=== PATIENT | female | born 1930 | race Caucasian/White ===

== ENCOUNTER 2016-05-11 18:49 | Observation (INO) | payer MEDICARE ==
[~2016-05-11] VITALS: Ht 152.4 cm; Wt 54.2 kg
[~2016-05-11 18:49] MED LIST: ASPI81TA28 PO; ATOR-24 PO; BISO10TA14 PO; MECL25TA2 PO; PLN/10 PO; WARF2.5T8 PO
[2016-05-11] MEDS ORDERED: SODIUM CHLORIDE 0.9% 1000ML 1,000 ML IV SCH (19:18)
[2016-05-11 19:32] LABS: BASO % 0.7 %; BASO ABS # 0.07 K/uL (0-0.2); COMPLETE YES; HEMATOCRIT 46.5 % (37-47); IG% 0.3 %; LYMPH % 26.7 %; LYMPH ABS # 2.66 K/uL (1.2-3.4); MEAN CELL VOLUME 93.6 fL (80-100); MEAN CORPUSCULAR HEMOGLOBIN 32.4 pg (25-34); MEAN CORPUSCULAR HGB CONC 34.6 g/dl (32-36); MEAN PLATELET VOLUME 13.9 fL (7.4-10.4); MONO % 7.1 %; NEUT % 62.2 %; PLATELET COUNT 201 K/uL (130-400); RED BLOOD COUNT 4.97 M/uL (4.2-5.4); WHITE BLOOD COUNT 9.96 K/uL (4.8-10.8)
--- NOTE | 2016-05-11 19:39 | DIAGNOSTIC IMAGING REPORT ---
HEAD CT NONCONTRAST CT DOSE: 614.27 mGy.cm HISTORY: Stroke symptoms. TECHNIQUE: Multiaxial CT images of the head were performed without the use of intravenous contrast. Automated exposure control was utilized for this study. Comparison: None. Findings: Small fluid level within the sphenoid sinuses. The mastoid air cells are clear. The calvarium and skull base are intact. There is no mass, hematoma, midline shift, acute infarct. White matter hypodensity is nonspecific but suggestive of microvascular ischemic change. The ventricles and sulci demonstrate mild age-related involutional changes. Impression: No acute intracranial abnormality. Small fluid levels within the sphenoid sinuses. Electronically signed by: Dionicio Luz M.D. 05/11/2016 7:38 PM Dictated Date/Time: 05/11/2016 7:34 PM
--- NOTE | 2016-05-11 19:40 | DIAGNOSTIC IMAGING REPORT ---
CHEST ONE VIEW PORTABLE HISTORY: Stroke symptoms. COMPARISON: Chest 12/22/2015. FINDINGS: The lungs are clear. Cardiac silhouette is normal in size. No pleural effusions. No pneumothorax. IMPRESSION: No acute process. Electronically signed by: Dionicio Luz M.D. 05/11/2016 7:39 PM Dictated Date/Time: 05/11/2016 7:38 PM
[2016-05-11 19:42] LABS: PARTIAL THROMBOPLASTIN RATIO 1.3; PROTHROMBIN TIME (PATIENT) 22.1 SECONDS (9.0-12.0)
[2016-05-11 19:51] LABS: BLOOD UREA NITROGEN 21 mg/dl (7-18); BUN/CREATININE RATIO 29.7 (10-20); CALCIUM 9.2 mg/dl (8.5-10.1); CARBON DIOXIDE 27 mmol/L (21-32); CHLORIDE 107 mmol/L (98-107); GLUCOSE 95 mg/dl (70-99); SODIUM 141 mmol/L (136-145)
[2016-05-11 19:55] LABS: CKMB/CK RATIO 4.1 (0-3.0)
[2016-05-11] MEDS ORDERED: ACETAMINOPHEN 325 MG TAB PO PRN (21:45)
[2016-05-11] MEDS ORDERED: PHARMACIST DISCHARGE MED REC CONSULT PRN (21:45)
[2016-05-11] MEDS ORDERED: ONDANSETRON INJ 2 MG/ML 2 ML VIAL IV PRN (21:45)
[2016-05-11] MEDS ORDERED: ALUMINUM/MAGNESIUM/SIMETH (MAALOX MAX) 30 ML UDC PO PRN (21:45)
[2016-05-11 22:39] VITALS: Ht 152.4 cm; Wt 54.2 kg
[2016-05-12] VITALS (8 sets, daily range): BP systolic 104–159; BP diastolic 51–71; PULSE 45–97; TEMP 36.5–36.9; O2SAT 95–97
[2016-05-12] MEDS ORDERED: IV FLUIDS COMPLETED PRN (00:15)
--- NOTE | 2016-05-12 00:23 | History and Physical ---
History & Physical Date & Time of Service: May 12, 2016 at 00:09 Chief Complaint: Stroke-Like Symptoms Primary Care Physician: Vinnie Herrera M.D. History of Present Illness Source: patient, spouse Norma is an 85-year-old female, with history of atrial fibrillation on Coumadin , hypertension, with no previous strokes, who presents with stroke-like symptoms at 5:30 PM, 1.5 hours prior to arrival. She reports she was sitting in her chair reading the newspaper and noticed that her vision became blurry and that words in the newspaper were moving around frequently. She also developed a headache at that time and the lower back part of her head which spread throughout her entire head. She called a friend who is a PA who did an assessment of her over the phone and told her to go to the ED. Upon arriving in the ED she was able to walk from her car to the main entrance but then suddenly felt very weak and had to have a wheelchair bring her into the room. She has been able unable to walk on her own since then. She denies any numbness or tingling in her arms or legs. She denies any facial droop. She denies any slurred speech. A stroke alert was called, though her symptoms had resolved she said they were able to find a change in her right visual field. When speaking with me, she feels her visual weir are intact, and no words move around when she reads small print. She reports she been feeling well otherwise, denies any fevers, chills, night sweats. She denies dehydration. Currently she still reports headache. She is otherwise very active. [place] farm with her and they both take care of each other. Her PCP is Dr. Herrera and her faceter is Dr. Mcknight. Past Medical/Surgical History Medical Problems: (1) Atrial fibrillation Status: Chronic (2) Hyperlipidemia Status: Chronic PSHx: Total hysterectomy and oophorectomy. Family History Hypertension Daughter from ovarian cancer Social History Smoking Status: Never Smoker Drug Use: none Marital Status: Occupational Status: retired Allergies Coded Allergies: Iodinated Contrast Media (Verified Allergy, Unknown, HIVES/ITCHING, ) Home Medications Scheduled Aspirin (Aspirin Ec), 81 MG PO QPM Atorvastatin (Lipitor), 40 MG PO HS Felodipine (Felodipine ER), 10 MG PO QAM Warfarin Sod (Jantoven), 2.5 MG PO QPM Scheduled PRN Meclizine Hcl (Antivert), 25 MG PO TID PRN for Dizziness or Vertigo Review of Systems See HPI for pertinent positives & negatives. A total of 10 systems reviewed and were otherwise negative. Physical Exam Vital Signs Date Time Temp Pulse Resp B/P Pulse Ox O2 Delivery O2 Flow Rate FiO2 05/12/16 00:02 36.5 61 18 154/69 96 Room Air 05/11/16 22:44 80 16 140/78 05/11/16 22:39 Room Air 05/11/16 21:40 74 18 148/78 05/11/16 20:38 77 18 148/81 95 05/11/16 19:50 37.1 89 18 158/67 97 Room Air 05/11/16 19:34 89 05/11/16 19:32 86 18 158/67 97 Room Air 05/11/16 18:56 37.1 47 18 161/73 96 Room Air General Appearance: WD/WN, no apparent distress Head: normocephalic, atraumatic Eyes: normal inspection, PERRL ENT: hearing grossly normal Neck: supple, no adenopathy, no JVD Respiratory/Chest: lungs clear, normal breath sounds, no respiratory distress Cardiovascular: no murmur, normal peripheral pulses, + irregularly irregular Abdomen/GI: normal bowel sounds, non tender, soft Back: no CVA tenderness, no muscle spasm Extremities/Musculoskelatal: no pedal edema Neurologic/Psych: youth minister II-XII nml as tested, no motor/sensory deficits, alert, normal mood/affect, normal reflexes, oriented x 3 Skin: no rash Diagnostics Laboratory Results Results Past 24 Hours Test 05/11/16 19:15 05/11/16 19:18 05/11/16 19:19 Range/Units White Blood Count 9.96 4.8-10.8 K/uL Red Blood Count 4.97 4.2-5.4 M/uL Hemoglobin 16.1 12.0-16.0 g/dL Hematocrit 46.5 37-47 % Mean Corpuscular Volume 93.6 80-100 fL Mean Corpuscular Hemoglobin 32.4 25-34 pg Mean Corpuscular Hemoglobin Concent 34.6 32-36 g/dl Platelet Count 201 130-400 K/uL Mean Platelet Volume 13.9 7.4-10.4 fL Neutrophils (%) (Auto) 62.2 % Lymphocytes (%) (Auto) 26.7 % Monocytes (%) (Auto) 7.1 % Eosinophils (%) (Auto) 3.0 % Basophils (%) (Auto) 0.7 % Neutrophils # (Auto) 6.19 1.4-6.5 K/uL Lymphocytes # (Auto) 2.66 1.2-3.4 K/uL Monocytes # (Auto) 0.71 0.11-0.59 K/uL Eosinophils # (Auto) 0.30 0-0.5 K/uL Basophils # (Auto) 0.07 0-0.2 K/uL RDW Standard Deviation 47.9 36.4-46.3 fL RDW Coefficient of Variation 14.1 11.5-14.5 % Immature Granulocyte % (Auto) 0.3 % Immature Granulocyte # (Auto) 0.03 0.00-0.02 K/uL Prothrombin Time 22.1 9.0-12.0 SECONDS Prothromb Time International Ratio 2.0 0.9-1.1 Activated Partial Thromboplast Time 33.4 21.0-31.0 SECONDS Partial Thromboplastin Ratio 1.3 Sodium Level 141 136-145 mmol/L Potassium Level 4.0 3.5-5.1 mmol/L Chloride Level 107 98-107 mmol/L Carbon Dioxide Level 27 21-32 mmol/L Anion Gap 7.0 3-11 mmol/L Blood Urea Nitrogen 21 7-18 mg/dl Creatinine 0.70 0.60-1.20 mg/dl Est Creatinine Clear Calc Drug Dose 46.0 ml/min Estimated GFR () 91.6 Estimated GFR (Non- 79.0 BUN/Creatinine Ratio 29.7 10-20 Random Glucose 95 70-99 mg/dl Calcium Level 9.2 8.5-10.1 mg/dl Total Creatine Kinase 69 26-192 U/L Creatine Kinase MB 2.8 0.5-3.6 ng/ml Creatine Kinase MB Ratio 4.1 0-3.0 Troponin I < 0.015 0-0.045 ng/ml Bedside Glucose 92 70-90 mg/dl Bedside Prothrombin Time INR 2.1 0.9-1.[address] NONCONTRAST CT DOSE: 614.27 mGy.cm HISTORY: Stroke symptoms. TECHNIQUE: Multiaxial CT images of the head were performed without the use of intravenous contrast. Automated exposure control was utilized for this study. Comparison: None. Findings: Small fluid level within the sphenoid sinuses. The mastoid air cells are clear. The calvarium and skull base are intact. There is no mass, hematoma, midline shift, acute infarct. White matter hypodensity is nonspecific but suggestive of microvascular ischemic change. The ventricles and sulci demonstrate mild age-related involutional changes. Impression: No acute intracranial abnormality. Small fluid levels within the sphenoid sinuses. EKG Atrial fibrillation with frequent PVCs No change from prior EKG Impression Assessment and Plan 85-year-old female with A. fib and hypertension who presents with sudden onset visual changes, now resolved, and weakness - likely TIA. TIA - MRI of brain - Carotid duplex - Continue statin therapy - Continue aspirin 81mg daily (Was on this prior to arrival) Atrial fibrillation - Telemetry - Continue Coumadin 2.5mg daily - Echocardiogram Hypertension - Continue Felodipine Resident Physician Supervision Note: I was present with [Name of resident] during the history and exam. I discussed the case with the resident and agree with the findings and plan as documented in the note. Any exceptions or clarifications are listed here: Pt admitted following acute visual disturbances while reading - on further questioning she more closely describes an acute inability to understand what she was reading in addition to experiencing blurred vision She denied any unilateral weakness or dyphagia Her visual impairment persisted at the time of arrival to the ER and was confirmed by the Telestroke service The pt has chronic AF and is anticoagulated with Coumadin OE AAO x 3 S1,2 R CTAB NT, ND No deficits at the time of admission P: Admit for TIA w/neurochecks ASA added to Coumadin CVA workup Consider ophtho consult Documented By: Sly Conte Level of Care Telemetry Advanced Directives Existing Living Will: Yes Existing Power of News Analyst: Yes Resuscitation Status FULL RESUSCITATION VTE Prophylaxis VTE Risk Assessment Done? Y/N: Yes Risk Level: Moderate Given or contraindicated: Warfarin (Coumadin) Additional Copies To Vinnie Herrera M.D.; Gerald Mcknight MD Resident Tracking Resident Involvement: Resident Care Provided Care Provided: Adult [facility]
--- NOTE | 2016-05-12 01:07 | EMERGENCY ROOM VISIT NOTE ---
History Report prepared by Angeli: Rianna Myles Under the Supervision of: Dr. Shukri Childs M.D. First contact with patient: 19:06 Chief Complaint: STROKE SYMPTOMS Stated Complaint: CLOT IN EYE? VISION DISTORTED History of Present Illness The patient is an 85 year old female who presents to the Emergency Room with complaints of constant stroke-like symptoms for the past 1.5 hours. The patient states that she was feeling fine earlier today. She was not having any difficulty reading. This evening she was paying bills. She did not have any trouble reading the bills or writing checks. At 1730 tonight, immediately after she finished paying the bills, she picked up a newspaper and was attempting to read it. She states that the letters in the words were "crowding up and jumping around in all different directions." Then she developed a headache in the back of her head. She has chronic neck pain, but states that this headache feels different. She rates her pain as a 4/10 in severity. The patient called her friend who is a PA and described her symptoms. She was advised to come to the ED for further evaluation. The patient denies numbness, facial droop, slurred speech, dizziness, trouble swallowing, and any trouble hearing. She denies any difficulty understanding others. She was not feeling weak before she got to the hospital. She was able to walk into the hospital normally, but states that while she was in triage she started to feel generally weak all over. She denies any one-sided weakness. She had difficulty walking back to the room and the nurse called for a wheelchair. The patient states that she is still feeling very unstable when she tries to walk. She denies feeling like the room is spinning. She does not a history of vertigo. She is on Coumadin and states that her most recent INR was WNL. Source of History: patient Onset: 1.5 hours CLAM GROWER Position: other (global) Symptom Intensity: 4/10 Quality: other (stroke-like) Timing: constant Modifying Factors (Worsening): other (walking) Associated Symptoms: + headache, + weakness, No numbness Note: Pt notes difficulty reading. Pt denies facial droop, slurred speech, dizziness, trouble swallowing, and any trouble hearing. Review of Systems See HPI for pertinent positives & negatives. A total of 10 systems reviewed and were otherwise negative. Past Medical & Surgical Medical Problems: (1) Atrial fibrillation (2) Hyperlipidemia (3) Stroke-like symptoms Family History Hypertension Social History Smoking Status: Never Smoker Alcohol Use: none Drug Use: none Marital Status: Housing Status: lives with family Occupation Status: retired Current/Historical Medications Scheduled Aspirin (Aspirin Ec), 81 MG PO QPM Atorvastatin (Lipitor), 40 MG PO HS Felodipine (Felodipine ER), 10 MG PO QAM Warfarin Sod (Jantoven), 2.5 MG PO QPM Scheduled PRN Meclizine Hcl (Antivert), 25 MG PO TID PRN for Dizziness or Vertigo Allergies Coded Allergies: Iodinated Contrast Media (Verified Allergy, Unknown, HIVES/ITCHING, ) Physical Exam Vital Signs Date Time Temp Pulse Resp B/P Pulse Ox O2 Delivery O2 Flow Rate FiO2 05/11/16 21:40 74 18 148/78 05/11/16 20:38 77 18 148/81 95 05/11/16 19:50 37.1 89 18 158/67 97 Room Air 05/11/16 19:34 89 05/11/16 19:32 86 18 158/67 97 Room Air 05/11/16 18:56 37.1 47 18 161/73 96 Room Air Physical Exam Constitutional: Vital signs reviewed. Eyes: Pupils are equal round reactive to light. Conjunctiva are noninjected. Visual field intact by confrontation bilaterally. ENT: Pharynx is clear without erythema or exudate. Mucous membranes are moist. Neck supple without meningeal signs. Respiratory: Clear to auscultation bilaterally. Breath sounds are equal bilaterally. Cardiovascular: Regular rate and rhythm. No rubs or gallops. GI: Soft, nondistended and nontender. Bowel sounds are present. Musculoskeletal: No peripheral edema. No lower extremity tenderness. Integumentary: No cyanosis. Neurological: The patient is awake and alert. Cranial nerves II-XII are intact. Motor is 5 out of 5 all extremities. Sensation is intact to light touch all extremities. Normal speech. Very unsteady gait. No pronator drift. No limb ataxia. Psychiatric: Normal affect. Medical Decision & Procedures ER Provider Diagnostic Interpretation: Radiology results as stated below per my review and the radiologist's interpretation: HEAD CT NONCONTRAST CT DOSE: 614.27 mGy.cm HISTORY: Stroke symptoms. TECHNIQUE: Multiaxial CT images of the head were performed without the use of intravenous contrast. Automated exposure control was utilized for this study. Comparison: None. Findings: Small fluid level within the sphenoid sinuses. The mastoid air cells are clear. The calvarium and skull base are intact. There is no mass, hematoma, midline shift, acute infarct. White matter hypodensity is nonspecific but suggestive of microvascular ischemic change. The ventricles and sulci demonstrate mild age-related involutional changes. Impression: No acute intracranial abnormality. Small fluid levels within the sphenoid sinuses. Electronically signed by: Dionicio Luz M.D. 05/11/2016 7:38 PM Dictated Date/Time: 05/11/2016 7:34 PM CHEST ONE VIEW PORTABLE HISTORY: Stroke symptoms. COMPARISON: Chest 12/22/2015. FINDINGS: The lungs are clear. Cardiac silhouette is normal in size. No pleural effusions. No pneumothorax. IMPRESSION: No acute process. Electronically signed by: Dionicio Luz M.D. 05/11/2016 7:39 PM Dictated Date/Time: 05/11/2016 7:38 PM Laboratory Results 05/11/16 19:15 Red Blood Count 4.97, Mean Corpuscular Volume 93.6, Mean Corpuscular Hemoglobin 32.4, Mean Corpuscular Hemoglobin Concent 34.6, Mean Platelet Volume 13.9, Neutrophils (%) (Auto) 62.2, Lymphocytes (%) (Auto) 26.7, Monocytes (%) (Auto) 7.1, Eosinophils (%) (Auto) 3.0, Basophils (%) (Auto) 0.7, Neutrophils # (Auto) 6.19, Lymphocytes # (Auto) 2.66, Monocytes # (Auto) 0.71, Eosinophils # (Auto) 0.30, Basophils # (Auto) 0.07 05/11/16 19:15 Test 05/11/16 19:15 05/11/16 19:18 05/11/16 19:19 White Blood Count 9.96 K/uL (4.8-10.8) Red Blood Count 4.97 M/uL (4.2-5.4) Hemoglobin 16.1 g/dL (12.0-16.0) Hematocrit 46.5 % (37-47) Mean Corpuscular Volume 93.6 fL (80-100) Mean Corpuscular Hemoglobin 32.4 pg (25-34) Mean Corpuscular Hemoglobin Concent 34.6 g/dl (32-36) Platelet Count 201 K/uL (130-400) Mean Platelet Volume 13.9 fL (7.4-10.4) Neutrophils (%) (Auto) 62.2 % Lymphocytes (%) (Auto) 26.7 % Monocytes (%) (Auto) 7.1 % Eosinophils (%) (Auto) 3.0 % Basophils (%) (Auto) 0.7 % Neutrophils # (Auto) 6.19 K/uL (1.4-6.5) Lymphocytes # (Auto) 2.66 K/uL (1.2-3.4) Monocytes # (Auto) 0.71 K/uL (0.11-0.59) Eosinophils # (Auto) 0.30 K/uL (0-0.5) Basophils # (Auto) 0.07 K/uL (0-0.2) RDW Standard Deviation 47.9 fL (36.4-46.3) RDW Coefficient of Variation 14.1 % (11.5-14.5) Immature Granulocyte % (Auto) 0.3 % Immature Granulocyte # (Auto) 0.03 K/uL (0.00-0.02) Prothrombin Time 22.1 SECONDS (9.0-12.0) Prothromb Time International Ratio 2.0 (0.9-1.1) Activated Partial Thromboplast Time 33.4 SECONDS (21.0-31.0) Partial Thromboplastin Ratio 1.3 Anion Gap 7.0 mmol/L (3-11) Est Creatinine Clear Calc Drug Dose 46.0 ml/min Estimated GFR () 91.6 Estimated GFR (Non- 79.0 BUN/Creatinine Ratio 29.7 (10-20) Calcium Level 9.2 mg/dl (8.5-10.1) Total Creatine Kinase 69 U/L (26-192) Creatine Kinase MB 2.8 ng/ml (0.5-3.6) Creatine Kinase MB Ratio 4.1 (0-3.0) Troponin I < 0.015 ng/ml (0-0.045) Bedside Glucose 92 mg/dl (70-90) Bedside Prothrombin Time INR 2.1 (0.9-1.1) Laboratory results as reviewed by me. Medications Administered Medications (Trade) Dose Ordered Sig/Jose Antonio Route Start Time Stop Time Status Last Admin Dose Admin Sodium Chloride (Nss 1000ml) 1,000 ml @ 50 mls/hr Q20H IV 05/11/16 19:18 05/11/16 23:46 DC 05/11/16 19:36 50 MLS/HR ECG Indication: other (neuro sx) Rate (beats per minute): 89 Rhythm: normal sinus Findings: PVC (in pattern of bigeminy), other (No ST elevations) ED Course 1905: The patient was evaluated in room B12B. A complete history and physical exam was performed. A stroke alert was called. 1917: NSS 1000 ml @ 50 mls/hr IV 1946: I spoke with Dr. Velazquez of [place]. He will see the patient via Tele-stroke in the ED. 1949: I updated the patient and her on the results and treatment plan. The patient still has trouble reading very small print but not normal print. 2031: I spoke with Dr. Velazquez again at this time. He recommended stroke care and MRI as well as bringing the patient in to the hospital. 2048: I reassessed the patient at this time. She is resting comfortably. I discussed the results and treatment plan with the patient and her . I answered all pertaining questions that they had. They expressed understanding and verbalized agreement. 2133: I spoke with Dr. Conte. We discussed the patient's results and treatment plan. The patient will be evaluated by the [facility] for further management. Medical Decision This is an 85-year-old female who presents with difficulty breathing and walking. Differential diagnosis includes hemianopia, CVA, TIA, metabolic derangement, intracranial hemorrhage, intracranial mass. I did perform a limited focused review of portions of the patient's old chart on the electronic medical record. The patient was here in November 2015 for atrial fibrillation. I did evaluate the patient as noted above. The patient is presenting with strokelike symptoms starting at 5:30 PM today. Currently she is neurologically intact although has significant difficulty walking. She is very off balance. I was concerned about a posterior circulation CVA. I did call a stroke alert. IV access was established. The patient was placed on a continuous equipment monitor phototypesetting. I did order and personally review the patient's 12-lead EKG and chest x-ray as described above. I did order and review the patient's blood work as noted in the electronic medical record. Her INR is 2.1. She is not a TPA candidate. I did order a stat CT of the head. I did review the images myself as well as the radiology report as described above. There is no evidence of acute intracranial hemorrhage. I did discuss the test results with the patient and her . I did discuss the case with Dr. Velazquez of [facility] here and he did evaluate the patient using the video phone. He recommended the patient be admitted for MRI and MRA and further evaluation. No acute intervention was indicated. I did discuss the case with the hospitalist and caser shoe parts. Consults Time Called: 1941 Consulting Physician: Dr. Velazquez Returned Call: [address] Velazquez of [place] [facility]. He will see the patient via Tele -stroke in the ED. Additional Consults: Time Called: 2031 Consulted Physician: Dr. Velazquez Returned Call: 2031 Additional Comments: I spoke with Dr. Velazquez again at this time. He recommended stroke care and MRI as well as bringing the patient in to the hospital. Time Called: 2050 Consulted Physician: Dr. Conte Returned Call: 2133 Additional Comments: I spoke with Dr. Conte. We discussed the patient's results and treatment plan. The patient will be evaluated by the [facility] for further management. Impression Primary Impression: Ataxia Additional Impression: Vision abnormalities Scribe Attestation The scribe's documentation has been prepared under my direct and personally reviewed by me in its entirety. I confirm that the note above accurately reflects all work, treatment, procedures, and medical decision making performed by me. Departure Information Dispostion Being Evaluated By Hospitalist Referrals Vinnie Herrera M.D. (PCP) Patient Instructions My [facility] Stroke History Time Last Known Well 1729 Stroke t-PA Criteria Reviewed Does NOT meet criteria for t-PA Reason t-PA Not Given Treatment not indicated, Contraindicated Strict Exclusion Criteria INR greater than 1.7 Problem Qualifiers
[2016-05-12 06:00] LABS: BASO % 1.1 %; BASO ABS # 0.08 K/uL (0-0.2); COMPLETE YES; EOS % 6.2 %; HEMATOCRIT 41.5 % (37-47); IG% 0.3 %; LYMPH % 29.4 %; MEAN CELL VOLUME 93.5 fL (80-100); MEAN CORPUSCULAR HEMOGLOBIN 31.8 pg (25-34); MEAN PLATELET VOLUME 13.8 fL (7.4-10.4); MONO % 9.9 %; NEUT % 53.1 %; PLATELET COUNT 188 K/uL (130-400); RED BLOOD COUNT 4.44 M/uL (4.2-5.4); WHITE BLOOD COUNT 7.15 K/uL (4.8-10.8)
[2016-05-12 06:15] LABS: INR 2.2 (0.9-1.1); PROTHROMBIN TIME (PATIENT) 24.8 SECONDS (9.0-12.0)
[2016-05-12 06:27] LABS: ESTIMATED AVERAGE GLUCOSE 126 mg/dl; HA1C FLAG Normal (Normal)
--- NOTE | 2016-05-12 06:30 | DIAGNOSTIC IMAGING REPORT ---
CAROTID ARTERY ULTRASOUND CLINICAL HISTORY: Stroke COMPARISON STUDY: None. TECHNIQUE: Real-time, grayscale, and color Doppler sonography of the carotid and vertebral arteries was performed. Images were viewed in the transverse and longitudinal planes. FINDINGS: There is moderate atherosclerotic plaque. Velocity measurements are listed below. COMMON CAROTID PEAK SYSTOLIC VELOCITY (CM/S): RIGHT 70 LEFT 66 ICA PEAK SYSTOLIC VELOCITY (CM/S): RIGHT 68 LEFT 97 The systolic ratios between the internal to common carotid arteries are normal. Antegrade flow is seen in the vertebral arteries. The external carotid arteries are patent. Blood pressure in the right arm measured 164/77. Blood pressure in the left arm measured 159/79. IMPRESSION: Moderate atherosclerotic plaque without evidence of hemodynamically significant stenosis. Electronically signed by: Sebastian Duarte M.D. 05/12/2016 6:28 AM Dictated Date/Time: 05/12/2016 6:27 AM
[2016-05-12 06:34] LABS: BUN/CREATININE RATIO 25.6 (10-20); CALCIUM 8.3 mg/dl (8.5-10.1); CREATININE 0.68 mg/dl (0.60-1.20); POTASSIUM 3.9 mmol/L (3.5-5.1)
--- NOTE | 2016-05-12 08:11 | DIAGNOSTIC IMAGING REPORT ---
MRI OF THE BRAIN COMBO CLINICAL HISTORY: Transient ischemic attack. COMPARISON STUDY: CT of the brain dated 05/11/2016. TECHNIQUE: MRI of the brain was performed utilizing various T1 and T2-weighted sequences in the axial, sagittal, and coronal planes. Contrast-enhanced sequences were acquired following the administration of 5.5 cc of Gadavist. FINDINGS: Brain parenchyma: There are age-related involutional changes noting moderate patchy subcortical and periventricular microangiopathic disease. There is no hemorrhage or mass effect. There is no restricted diffusion to suggest acute ischemia. No enhancing mass lesion is identified on the postcontrast images. Garber-white matter differentiation is preserved. No extra-axial fluid collection is seen. The cerebellar tonsils are normal in configuration. Ventricles, sulci, and cisterns: Prominent secondary to involutional change. Pituitary and sella: Unremarkable. Intracranial vasculature: Normal flow voids are maintained at the skull base. Orbits: The bony orbits are grossly intact. Orbital contents are normal in appearance noting bilateral ocular lens implants. Sinuses and mastoids: Small air-fluid levels are present within the sphenoid sinuses. The remaining paranasal sinuses are clear. The mastoid air cells are well pneumatized. Calvarium: Unremarkable. Cervical cord: Partially visualized cervical spinal cord is normal in morphology and signal intensity. IMPRESSION: Age-related changes as above with no acute intracranial abnormality. Electronically signed by: Lionel Borges M.D. 05/12/2016 8:09 AM Dictated Date/Time: 05/12/2016 8:06 AM
[2016-05-12] MEDS ORDERED: ASPIRIN 81 MG ECTAB PO SCH ×2 (09:00→21:00)
[2016-05-12] MEDS: FELODIPINE 5 MG TABCR PO SCH (10:01)
--- NOTE | 2016-05-12 17:28 | Family Medicine Progress Note ---
Progress Note Date of Service May 12, 2016. Subjective Pt evaluation today including: conversation w/ patient, physical exam, chart review, lab review Pain: denies any pain PO Intake: good Voiding: no voiding problems 85-year-old female with past mental history of atrial fibrillation on Coumadin, hypertension presented with strokelike symptoms yesterday. She experienced blurry vision and headache at that time. Head CT was negative. She was admitted for further evaluation. Today she denies any headaches, blurry vision ,difficulty breathing, slurring of speech, weakness or numbness or tingling. She only complains of feeling weak and tired. Constitutional: No chills, No fever Eyes: No worsening of vision ENT: No hearing loss Respiratory: No cough, No sputum Cardiovascular: No chest pain Abdomen: No nausea, No pain Musculoskeletal: No joint pain Female : No dysuria Neurologic: No memory loss Psychiatric: No depression symptoms Heme: No abnormal bleeding/bruising Medications Current Inpatient Medications Medications (Trade) Dose Ordered Sig/Jose Antonio Route Start Time Stop Time Status Last Admin Dose Admin Acetaminophen (Tylenol Tab) 650 mg Q4H PRN PO 05/11/16 21:45 06/10/16 21:44 Al Hydrox/Mg Hydrox/Simethicone (Maalox Max Susp) 15 ml Q4H PRN PO 05/11/16 21:45 06/10/16 21:44 Ondansetron HCl (Zofran Inj) 4 mg Q6H PRN IV 05/11/16 21:45 06/10/16 21:44 Aspirin (Ecotrin Tab) 81 mg QPM PO 05/12/16 21:00 06/11/16 20:59 Atorvastatin Calcium (Lipitor Tab) 40 mg HS PO 05/12/16 21:00 06/11/16 20:59 Warfarin Sodium (Coumadin Tab) 2.5 mg QPM PO 05/12/16 21:00 06/11/16 20:59 Felodipine (Plendil Tabcr) 10 mg QAM PO 05/12/16 09:00 06/11/16 08:59 05/12/16 10:01 10 MG Miscellaneous (Iv Fluids Completed) 1 ea PRN PRN N/A 05/12/16 00:15 05/12/17 00:14 Objective Vital Signs Date Time Temp Pulse Resp B/P Pulse Ox O2 Delivery O2 Flow Rate FiO2 3/17/17 16:00 Room Air 05/12/16 15:43 36.8 51 18 104/59 96 Room Air 05/12/16 12:00 Room Air 05/12/16 11:46 36.9 73 18 120/51 96 05/12/16 08:00 95 Room Air 05/12/16 07:53 36.9 45 18 137/68 95 05/12/16 04:29 36.6 97 18 159/71 95 Room Air 05/12/16 04:00 Room Air 05/12/16 00:02 36.5 61 18 154/69 96 Room Air 05/11/16 22:44 80 16 140/78 05/11/16 22:39 Room Air 05/11/16 21:40 74 18 148/78 05/11/16 20:38 77 18 148/81 95 05/11/16 19:50 37.1 89 18 158/67 97 Room Air 05/11/16 19:34 89 05/11/16 19:32 86 18 158/67 97 Room Air 05/11/16 18:56 37.1 47 18 161/73 96 Room Air Physical Exam General Appearance: WD/WN, no apparent distress Eyes: normal inspection ENT: normal ENT inspection, hearing grossly normal Neck: supple Respiratory/Chest: chest non-tender, lungs clear, normal breath sounds Cardiovascular: + irregularly irregular Abdomen: normal bowel sounds, non tender Extremities: normal range of motion, non-tender, no pedal edema Neurologic/Psychiatric: alert, normal mood/affect, oriented x 3 Skin: normal color Laboratory Results Last Resulted 05/12/16 05:44 Red Blood Count 4.44, Mean Corpuscular Volume 93.5, Mean Corpuscular Hemoglobin 31.8, Mean Corpuscular Hemoglobin Concent 34.0, Mean Platelet Volume 13.8, Neutrophils (%) (Auto) 53.1, Lymphocytes (%) (Auto) 29.4, Monocytes (%) (Auto) 9.9, Eosinophils (%) (Auto) 6.2, Basophils (%) (Auto) 1.1, Neutrophils # (Auto) 3.80, Lymphocytes # (Auto) 2.10, Monocytes # (Auto) 0.71, Eosinophils # (Auto) 0.44, Basophils # (Auto) 0.08 Last Resulted 05/12/16 05:44 Past 24 Hours Test 05/11/16 19:15 05/12/16 05:44 Range/Units Creatine Kinase MB 2.8 0.5-3.6 ng/ml Creatine Kinase MB Ratio 4.1 H 0-3.0 Prothromb Time International Ratio 2.0 H 2.2 H 0.9-1.1 Prothrombin Time 22.1 H 24.8 H 9.0-12.0 SECONDS Total Creatine Kinase 69 26-192 U/L Troponin I < 0.015 0-0.045 ng/ml [~ rep ct add3]] MRI OF THE BRAIN COMBO CLINICAL HISTORY: Transient ischemic attack. COMPARISON STUDY: CT of the brain dated 05/11/2016. TECHNIQUE: MRI of the brain was performed utilizing various T1 and T2-weighted sequences in the axial, sagittal, and coronal planes. Contrast-enhanced sequences were acquired following the administration of 5.5 cc of Gadavist. FINDINGS: Brain parenchyma: There are age-related involutional changes noting moderate patchy subcortical and periventricular microangiopathic disease. There is no hemorrhage or mass effect. There is no restricted diffusion to suggest acute ischemia. No enhancing mass lesion is identified on the postcontrast images. Garber-white matter differentiation is preserved. No extra-axial fluid collection is seen. The cerebellar tonsils are normal in configuration. Ventricles, sulci, and cisterns: Prominent secondary to involutional change. Pituitary and sella: Unremarkable. Intracranial vasculature: Normal flow voids are maintained at the skull base. Orbits: The bony orbits are grossly intact. Orbital contents are normal in appearance noting bilateral ocular lens implants. Sinuses and mastoids: Small air-fluid levels are present within the sphenoid sinuses. The remaining paranasal sinuses are clear. The mastoid air cells are well pneumatized. Calvarium: Unremarkable. Cervical cord: Partially visualized cervical spinal cord is normal in morphology and signal intensity. IMPRESSION: Age-related changes as above with no acute intracranial abnormality. CAROTID ARTERY ULTRASOUND CLINICAL HISTORY: Stroke COMPARISON STUDY: None. TECHNIQUE: Real-time, grayscale, and color Doppler sonography of the carotid and vertebral arteries was performed. Images were viewed in the transverse and longitudinal planes. FINDINGS: There is moderate atherosclerotic plaque. Velocity measurements are listed below. COMMON CAROTID PEAK SYSTOLIC VELOCITY (CM/S): RIGHT 70 LEFT 66 ICA PEAK SYSTOLIC VELOCITY (CM/S): RIGHT 68 LEFT 97 The systolic ratios between the internal to common carotid arteries are normal. Antegrade flow is seen in the vertebral arteries. The external carotid arteries are patent. Blood pressure in the right arm measured 164/77. Blood pressure in the left arm measured 159/79. IMPRESSION: Moderate atherosclerotic plaque without evidence of hemodynamically significant stenosis. Assessment and Plan 85-year-old female with past mental history of atrial fibrillation on Coumadin, hypertension presented with strokelike symptoms yesterday. She experienced blurry vision and headache at that time. Head CT was negative. TIA - Head CT: No acute process - MRI of brain: Age-related changes as above with no acute intracranial abnormality. - Carotid duplex: Moderate atherosclerotic plaque without evidence of hemodynamically significant stenosis. - Continue statin therapy - Continue aspirin 81mg daily Atrial fibrillation - Continue Coumadin 2.5mg daily Hypertension - Continue Felodipine Deconditioning : Physical therapy/occupational therapy Full code Disposition: Referral for inpatient rehabilitation Reviewed: Pt Seen/Exam by Me History Pt states her headache has resolved and her vision is WNL for her. She does still feel weak and is using a walker for ambulation, which is not her baseline. No focal weakness, more generalized. She states that she has been under a great deal of stress recently due to the of her sister and also with home renovation on the older farm house that she and her live in that is not going as planned. There are contractors in and out of the house all day and everything is taking longer and more expensive than planned. Has not chest pain, SOB, facial drooping. Agree with HPI/ROS as noted. 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 Any exceptions or clarifications are listed here: Admitted for stroke-like symptoms, likely TIA CT, MRI, carotid US WNL Already on aspirin and coumadin with INR therapeutic PT/OT recs for rehab, awaiting auth for d/c Documented By: Corry Cho
--- NOTE | 2016-05-12 18:15 | ECHOCARDIOGRAM REPORT ---
*NOTICE TO RECEIVING [employer] This information is strictly Confidential and protected under [place] law. [place] law prohibits you from making any further disclosure of this information unless further disclosure is expressly permitted by the written consent of the person to whom it pertains or is authorized by law. A general authorization for the release of medical or other information is not sufficient for this purpose. Hospital accepts no responsibility if the information is made available to any other person, INCLUDING THE PATIENT. Interpretation Summary * Name: IQRA ROBLES Study Date: 05/12/2016 08:51 AM BP: 159/71 mmHg * Patient Location: [facility]\S\[id number]\S\1 HR: 77 * : 1930 (M/d/yyyy) Gender: Female Height: 60 in * Age: 85 yrs Ethnicity: [place] Weight: 122 lb * Ordering Physician: Violetta Brewer * Referring Physician: Self, Referred * Performed By: Kathy Schreiber RCS * * Reason For Study: A-FIB * BSA: 1.5 m2 * -- Conclusions -- * 1. Normal LV size and wall thickness. * 2. Normal LV systolic function. LVEF 60-65%. No regional wall motion abnormalities. Grade I diastolic dysfunction. * 3. Borderline RV enlargement, and RV dysfunction. * 4. Moderate biatrial enlargement. * 5. Moderate aortic sclerosis without stenosis. Trace AI. * 6. Moderate tricuspid regurgitation. * 7. Moderate pulmonary hypertension. Est PASP 50-55 mmHg. RA 3 mmHg. * 8. No prior studies for comparison. Procedure Details * A complete two-dimensional transthoracic echocardiogram was performed (2D, M-mode, Doppler and color flow Doppler). Left Ventricle * The left ventricle is grossly normal size. * There is normal left ventricular wall thickness. * Ejection Fraction = 60-65%. * No regional wall motion abnormalities noted. Right Ventricle * Borderline right ventricular enlargement. * The right ventricular systolic function is borderline reduced. Atria * The left atrium is moderately dilated. * The right atrium is moderately dilated. Mitral Valve * The mitral valve leaflets appear thickened, but open well. * There is mild mitral annular calcification. * Mitral stenosis is absent. * There is trace mitral regurgitation. Tricuspid Valve * The tricuspid valve is not well visualized, but is grossly normal. * There is no tricuspid stenosis. * There is moderate tricuspid regurgitation. * Right ventricular systolic pressure is elevated at 50-60mmHg. Aortic Valve * Aortic valve sclerosis moderate, without significant aortic valvular stenosis. * No hemodynamically significant valvular aortic stenosis. * Trace aortic regurgitation. Pulmonic Valve * The pulmonary valve is inadequately visualized, but the Doppler data is adequate for interpretation. * Pulmonic stenosis is absent. * Trace pulmonic valvular regurgitation. Great Vessels * The aortic root and proximal ascending aorta are normal sized. Pericardium/Pleural * There is no pericardial effusion. Great Vessels * Normal inferior vena cava size and collapsability with sniff indicates a normal right atrial pressure of 3 mmHg Left Ventricular Diastolic Function * Grade I diastolic dysfunction, (abnormal relaxation pattern). MMode 2D Measurements and Calculations IVSd 0.75 cm IVSs 10 cm LVIDd 4.3 cm LVIDs 2.6 cm LVPWd 0.80 cm LVPWs 1.0 cm IVS/LVPW 0.93 FS 40.0 % EDV(Teich) 81.0 ml ESV(Teich) 23.5 ml EF(Teich) 70.9 % EDV(cubed) 77.0 ml ESV(cubed) 16.7 ml EF(cubed) 78.4 % % IVS thick 33.2 % % LVPW thick 27.7 % LV mass(C)d 99.1 grams LV mass(C)dI 65.5 grams/m\S\2 LV mass(C)s 66.2 grams LV mass(C)sI 43.8 grams/m\S\2 CO(Teich) 2.8 l/min CI(Teich) 1.8 l/min/m\S\2 SV(Teich) 57.5 ml SI(Teich) 38.0 ml/m\S\2 CO(cubed) 2.9 l/min CI(cubed) 1.9 l/min/m\S\2 SV(cubed) 60.4 ml SI(cubed) 39.9 ml/m\S\2 Ao root diam 2.9 cm Ao root area 6.6 cm\S\2 ACS 1.3 cm LA dimension 3.5 cm LA/Ao 1.2 LVAd ap4 23.9 cm\S\2 LVLd ap4 6.9 cm EDV(MOD-sp4) 66.0 ml LVAs ap4 11.6 cm\S\2 LVLs ap4 5.6 cm ESV(MOD-sp4) 20.0 ml EF(MOD-sp4) 69.7 % LVAd ap2 23.3 cm\S\2 LVLd ap2 7.4 cm EDV(MOD-sp2) 62.0 ml LVAs ap2 11.4 cm\S\2 LVLs ap2 6.2 cm ESV(MOD-sp2) 18.0 ml EF(MOD-sp2) 71.0 % CO(MOD-sp4) 2.2 l/min CI(MOD-sp4) 1.5 l/min/m\S\2 SV(MOD-sp4) 46.0 ml SI(MOD-sp4) 30.4 ml/m\S\2 CO(MOD-sp2) 2.1 l/min CI(MOD-sp2) 1.4 l/min/m\S\2 SV(MOD-sp2) 44.0 ml SI(MOD-sp2) 29.1 ml/m\S\2 Doppler Measurements and Calculations MV E max calvin 84.5 cm/sec MV A max calvin 92.9 cm/sec MV E/A 0.91 MV P1/2t max calvin 88.0 cm/sec MV P1/2t 102.1 msec MVA(P1/2t) 2.2 cm\S\2 MV dec slope 252.3 cm/sec\S\2 MV dec time 0.24 sec Ao V2 max 195.7 cm/sec Ao max PG 15.3 mmHg Ao max PG (full) 11.4 mmHg AI max calvin 348.4 cm/sec AI max PG 48.6 mmHg AI dec slope 149.2 cm/sec\S\2 AI P1/2t 684.1 msec LV V1 max PG 3.9 mmHg LV V1 max 98.5 cm/sec PA V2 max 93.4 cm/sec PA max PG 3.5 mmHg PI max calvin 216.1 cm/sec PI max PG 18.7 mmHg PI dec slope 141.6 cm/sec\S\2 PI P1/2t 447.1 msec TR max calvin 336.4 cm/sec
[2016-05-12] MEDS ORDERED: ATORVASTATIN 40 MG TAB PO SCH (21:00)
[2016-05-12] MEDS ORDERED: WARFARIN SOD 2.5 MG TAB PO SCH (21:00)
[2016-05-13 04:21] VITALS: BP 111/53; PULSE 42; TEMP 36.6; O2SAT 96
[2016-05-13 07:12] LABS: BASO % 1.1 %; BASO ABS # 0.09 K/uL (0-0.2); COMPLETE YES; EOS % 5.8 %; HEMATOCRIT 42.1 % (37-47); IG% 0.2 %; LYMPH % 36.4 %; LYMPH ABS # 3.03 K/uL (1.2-3.4); MEAN CELL VOLUME 91.9 fL (80-100); MEAN CORPUSCULAR HGB CONC 33.7 g/dl (32-36); MEAN PLATELET VOLUME 13.3 fL (7.4-10.4); MONO % 7.8 %; NEUT % 48.7 %; PLATELET COUNT 191 K/uL (130-400); RED BLOOD COUNT 4.58 M/uL (4.2-5.4); WHITE BLOOD COUNT 8.32 K/uL (4.8-10.8)
[2016-05-13 07:16] LABS: INR 2.4 (0.9-1.1); PROTHROMBIN TIME (PATIENT) 26.8 SECONDS (9.0-12.0)
[2016-05-13 07:43] LABS: BUN/CREATININE RATIO 25.4 (10-20); CALCIUM 8.4 mg/dl (8.5-10.1); CREATININE 0.73 mg/dl (0.60-1.20); POTASSIUM 4.1 mmol/L (3.5-5.1)
[2016-05-13 08:25] VITALS: BP 114/52; PULSE 45; TEMP 36.6; O2SAT 96
[2016-05-13] MEDS: FELODIPINE 5 MG TABCR PO SCH (08:26)
--- NOTE | 2016-05-13 10:00 | Discharge Instructions ---
Discharge Instructions Date of Service May 13, 2016. Admission Reason for Admission: Stroke-Like Symptoms Discharge Discharge Diagnosis / Problem: Transient Ischemic Attack Discharge Goals Goal(s): Decrease discomfort, Improve function, Increase independence Activity Recommendations Activity Limitations: resume your previous activity (try to decrease your stress!) . Instructions / Follow-Up Instructions / Follow-Up Dr. Herrera next week Risk Factors for Stroke: You can reduce your chances of stroke by working with your medical provider to adopt a healthy lifestyle. Some specific ways to lower your chance of stroke are: * If you are a smoker, now is the time to stop smoking cigarettes * If you are diabetic, improve the control of your blood sugars * Avoid excessive amounts of alcohol * Control high blood pressure * Lose weight if you are overweight * Be sure to lead an active lifestyle * Eat a healthy diet low in salt, cholesterol and fat You should know about other risk factors for stroke that you are unable to control. These include: * Age 55 years or older * Male gender * Certain racial groups: , or / * Family History of Stroke, Mini stroke or Heart Attack * Sickle Cell Disease Follow Up: It is important for you to keep your follow up appointments with your medical provider. Current Hospital Diet Patient's current hospital diet: AHA Diet (Heart Healthy) Discharge Diet Recommended Diet: Regular Diet Pending Studies Studies pending at discharge: no Laboratory Results Hemoglobin A1c Test 05/11/16 19:15 Range/Units Estimated Average Glucose 126 mg/dl Hemoglobin A1c 6.0 H 4.5-5.6 % Lipid Panel Test 05/12/16 05:44 Range/Units Triglycerides Level 88 0-150 mg/dl Cholesterol Level 153 0-200 mg/dl HDL Cholesterol 78 mg/dl Cholesterol/HDL Ratio 2.0 LDL Cholesterol, Calculated 57 mg/dl Medical Emergencies . Who to Call and When: Medical Emergencies: Call 911 immediately if you experience any of the following warning signs and symptoms of Stroke: * Sudden numbness or weakness of the face, arm or leg, especially on one side of the body * Sudden confusion, trouble speaking or understanding * Sudden trouble seeing in one or both eyes * Sudden trouble walking, dizziness, loss of balance or coordination * Sudden severe headache with no cause Do not delay calling 911 if you experience any warning signs or symptoms of a stroke. Delay in seeking medical attention may affect what treatments can be given to you. . Non-Emergent Contact Non-Emergency issues call your: Primary Care Provider . . "Provider Documentation" section prepared by Corry Cho. Stroke Core Measures Reason no t-PA for Stroke: Treatment not indicated Reason no antithrom by day 2: Treatment provided - N/A Reason no antithrom at D/C: Treatment provided - N/A Reason no statin at D/C: Treatment provided - N/A Reason no anticoag w/a fib: Treatment provided - N/A VTE Core Measure Inpt VTE Proph given/why not?: Warfarin (Coumadin)
--- NOTE | 2016-05-13 10:04 | Discharge Summary ---
Discharge Summary Date of Service May 13, 2016. Discharge Summary Admission Date: May 11, 2016 at 21:46 Discharge Date: May 13, 2016 Discharge Disposition: Home with services Principal Diagnosis: TIA Problems/Secondary Diagnoses: Afib on coumadin Hyperlipidemia Medication Reconciliation Continued Medications: Aspirin (Aspirin Ec) 81 Mg Tab 81 MG PO QPM Atorvastatin (Lipitor) 40 Mg Tab 40 MG PO HS, TAB Felodipine (Felodipine ER) 10 Mg Tabcr 10 MG PO QAM Meclizine Hcl (Antivert) 25 Mg Tab 25 MG PO TID PRN for Dizziness or Vertigo, #21 TAB PRN DIZZINESS Warfarin Sod (Jantoven) 2.5 Mg Tab 2.5 MG PO QPM, TAB Discharge Exam Pt is doing well. She feels she is still a bit weak, but has been ambulating more in the hallways and feels her strength is improved again from yesterday. Has been tolerating PO without issue. Pt denies fever, SOB, chest pain, abd pain, n/v/c/d, LE pain or swelling. ROS as noted above, otherwise neg. Pt no longer wishes to go to [facility], but would like PT/OT and a script for a walker. She is planning to limit the stress related to her home renovations and ask her for more help with this. Physical Exam: General Appearance: WD/WN, no apparent distress Respiratory/Chest: normal breath sounds, no respiratory distress Cardiovascular: regular rate, rhythm, no edema Abdomen / GI: non tender, soft Extremities: no calf tenderness, no pedal edema Neurologic/Psychiatric: alert, oriented x 3, + pertinent finding (Pt became tearful talking about her daughter who passed 15 years ago, but otherwise pleasant and conversant) Skin: normal color, warm/dry Hospital Course 85-year-old female with past mental history of atrial fibrillation on Coumadin, hypertension presented with strokelike symptoms yesterday. She experienced blurry vision and headache at that time. Head CT was negative. TIA - Head CT: neg - MRI of brain: neg for acute intracranial abnormality. - Carotid duplex: Moderate atherosclerotic plaque without evidence of hemodynamically significant stenosis. 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 Pt was agreeable to this yesterday and auth was submitted to insurance, which was pending. Today, pt feels she is not at her usual strength, but has again improved overnight and would rather d/c to home with HH PT/OT. I did discuss the risks of return to home vs rehab given her unsteadiness and risk for fall, but pt is willing to accept this. I also discussed decreasing her stress to help prevent further TIA and she agreed that "I need to take care of myself first for a change". Given a script for a walker and CM is to arrange home services. Total Time Spent: Greater than 30 minutes This includes examination of the patient, discharge planning, medication reconciliation, and communication with other providers. Discharge Instructions Please refer to the electronic Patient Visit Report (Discharge Instructions) for additional information. Follow-Up Dr. Herrera next week Additional Copies To Vinnie Herrera M.D.
[2016-05-13 10:17] VITALS: BP 114/52; PULSE 45; TEMP 36.6; O2SAT 96
== END 2016-05-13 14:00 | disposition home health service (06) ==
LOC: ENRESERVDT → ENRESERVTM → C.EDB 18:50 → C.MED 21:46
PROVIDERS: ADMIT Internal Medicine; ATTEND Family Medicine
DX: G45.9 Transient cerebral ischemic attack, unspecified (principal); I48.91 Unspecified atrial fibrillation; I10 Essential (primary) hypertension; E78.5 Hyperlipidemia, unspecified; Z80.41 Family history of malignant neoplasm of ovary; Z82.49 Family history of ischemic heart disease and other diseases of the circulatory system; Z79.82 Long term (current) use of aspirin; Z79.01 Long term (current) use of anticoagulants; Z79.899 Other long term (current) drug therapy

== ENCOUNTER → 2017-01-26 | Outpatient (CLI) | payer OTHER ==
[~2017-01-26] MED LIST changes: -BISO10TA14 PO
[2017-01-26 13:20] LABS: HEMATOCRIT 41.5 % (37-47); MEAN CELL VOLUME 96.7 fL (80-100); MEAN CORPUSCULAR HEMOGLOBIN 31.9 pg (25-34); MEAN PLATELET VOLUME 13.5 fL (7.4-10.4); PLATELET COUNT 237 K/uL (130-400); RED BLOOD COUNT 4.29 M/uL (4.2-5.4); WHITE BLOOD COUNT 11.14 K/uL (4.8-10.8)
[2017-01-26 13:50] LABS: ALT/SGPT 34 U/L (12-78); AST/SGOT 17 U/L (15-37); BLOOD UREA NITROGEN 19 mg/dl (7-18); BUN/CREATININE RATIO 29.1 (10-20); CALCIUM 9.7 mg/dl (8.5-10.1); CARBON DIOXIDE 28 mmol/L (21-32); CHLORIDE 105 mmol/L (98-107); CHOLESTEROL 242 mg/dl (0-200); CREATININE 0.65 mg/dl (0.60-1.20); GLUCOSE 86 mg/dl (70-99); POTASSIUM 3.7 mmol/L (3.5-5.1); SODIUM 139 mmol/L (136-145); TRIGLYCERIDES 187 mg/dl (0-150); VERY LOW DENSITY LIPOPROT CALC 37 mg/dl
[2017-01-26 14:00] LABS: CHOLESTEROL/HDL RATIO 2.8; HDL CHOLESTEROL 86 mg/dl; LDL CHOLESTEROL CALCULATED 119 mg/dl
== END | disposition home or self-care (01) ==
LOC: C.LAB1850 12:14
PROVIDERS: ATTEND Internal Medicine
DX: I48.0 Paroxysmal atrial fibrillation (principal); E55.9 Vitamin D deficiency, unspecified; I10 Essential (primary) hypertension; E78.5 Hyperlipidemia, unspecified